=== PATIENT | female | born 1995 | race American Indian/Alaskan Native ===

== ENCOUNTER 2020-06-04 09:39 | Outpatient (CLI) | payer MEDICAID, OTHER ==
[2020-06-04 11:07] VITALS: BP 120/69
[2020-06-04 11:38] LABS: Bacteria,Urine 1+ /HPF (Negative); Bilirubin,Urine NEG (Negative); Blood,Urine NEG (Negative); Color,Urine Yellow (Yellow); Mucus,Urine FEW /HPF; Protein,Urine <15 mg/dL mg/dL (Negative); Urobilinogen,Urine < 2.0 mg/dL (<2.0)
--- NOTE | 2020-06-04 13:37 | Event Note ---
Date: 06/04/20 (Pt states that she still has chest pain) Received a call from patient regarding chest pain and tightness. States that it travels down her left arm. Instructed pt at that time to go to the main ER. The main ER charge nurse was called regarding patient coming with c/o chest pain, tightness, and left arm being numb. The patient had no obstetrical complaints. She did not present to the main ER as instructed but to L&D triage. labs and EKG were obtained. I was called by the charge entry regarding patient. I came to speak with the patient, and she still had complaints of chest tightness, and appeared to be short of breath. I spoke with the patient regarding the need to go to the ER for evaluation. Pt agreed. Spoke with meat soaker Deandra regarding patient needing to go to the ER for evaluation. Pt was taken to the ER via wheelchair. I once again called the ER charge nurse and make her aware of patient coming for evaluation. Pt had monitor strip which showed FHR of 140's, no ctxs noted, appropriate for gestational age of 23.4 wks. She denied vag bleeding, LOF, ctxs.
== END 2020-06-04 13:56 | disposition swing bed (61) ==
LOC: TRG 09:39 → APU 09:40 → TRG 13:56
PROVIDERS: ATTEND Obstetrics & Gynecology
DX: O47.02 False labor before 37 completed weeks of gestation, second trimester (principal); Z3A.24 24 weeks gestation of pregnancy
CPT/HCPCS: 36415; 59025; 81001; 84484; 93005